=== PATIENT | female | born 1950 | race Two or more races ===

== ENCOUNTER 2016-07-13 12:51 | Inpatient (IN) | payer MEDICARE, OTHER ==
[~2016-07-13] VITALS: Ht 152.4 cm; Wt 112.6 kg
[2016-07-13 13:51] LABS: Basophils # (auto) 0.1 uL; Basophils % (auto) 0.7 % (0.0-2.0); Eosinophils # (auto) 0.2 uL; Eosinophils % (auto) 1.6 % (0.0-7.0); Hematocrit 43.8 % (36.0-46.0); Hemoglobin 14.3 g/dL (12.2-16.2); Lymphocytes # (auto) 3.2 uL; Lymphocytes % (auto) 31.2 % (10.0-50.0); Mean Corpuscular Hgb Conc. 32.6 g/dL (32.0-36.0); Mean Corpuscular Volume 85.8 fL (80.0-100.0); Mean Platelet Volume 8.9 fL (7.4-10.4); Monocytes # (auto) 1.1 uL; Neutrophils # (auto) 5.8 uL; Neutrophils % (auto) 55.5 % (37.0-80.0); Platelet Count (auto) 346 10^3/uL (140-450); Red Cell Distribution Width 14.3 % (11.6-16.0); White Blood Cell 10.4 10^3/uL (4.4-10.8)
[2016-07-13 14:25] LABS: Albumin 3.3 g/dL (3.4-5.0); BUN/Creatinine Ratio 15.5; Calcium 8.9 mg/dL (8.5-10.1); Magnesium 2.3 mg/dL (1.6-2.6); Potassium 3.8 mmol/L (3.5-5.1)
[2016-07-13 14:26] LABS: INR 1.06 (0.9-1.15); Partial Thromboplastin Time 26.8 sec (22.64-33.71); Prothrombin Time 10.9 sec (9.37-12.3)
[2016-07-13 14:30] LABS: Bilirubin, Total 0.5 mg/dL (0.2-1.0); Total Protein 7.6 g/dL (6.4-8.2)
[2016-07-13 14:34] LABS: B-Type Natriuretic Peptide 338.21 pg/mL (0-100)
[2016-07-13 14:35] LABS: Temperature: 22.7 C (20.0-25.0)
[2016-07-13] MEDS ORDERED: cefTRIAXone 1GM/50ML D5W 50 ML IV ONE (15:00)
[2016-07-13] MEDS ORDERED: LORazepam 0.5 MG TAB PO PRN (15:15)
[2016-07-13] MEDS ORDERED: DEXTROSE (50%) 50ML SYRG IV PRN (15:15)
[2016-07-13] MEDS ORDERED: ALBUTEROL SULF 2.5 MG/0.5ML(0.5%) NEB SOLN NEB PRN (15:15)
[2016-07-13] MEDS ORDERED: ACETAMINOPHEN 500 MG TAB PO PRN (15:15)
[2016-07-13] MEDS ORDERED: TEMAZEPAM 15 MG CAP PO PRN (15:15)
[2016-07-13] MEDS ORDERED: MORPHINE SULF INJ 2 MG/ML SYRINGE 1ML IV PRN ×2 (15:15)
[2016-07-13] MEDS ORDERED: PROMETHAZINE HCL 25 MG/ML 1ML IV PRN (15:15)
[2016-07-13] MEDS ORDERED: LACTULOSE 20Gm/30ML SOLN PO PRN (15:15)
[2016-07-13] MEDS ORDERED: OSELTAMIVIR 75 MG CAP PO ONE (15:15)
[2016-07-13] MEDS ORDERED: NITROGLYCERIN 0.4 MG SL TAB SL PRN (15:15)
[2016-07-13] MEDS ORDERED: VENL75TA43 PO (15:45)
[2016-07-13] MEDS ORDERED: LOSA25TA9 PO (15:45)
[2016-07-13] MEDS ORDERED: CHOL20009 PO (15:45)
[2016-07-13] MEDS ORDERED: FUROSEMIDE 40 MG/4 ML VIAL IV ONE (15:45)
[2016-07-13] MEDS ORDERED: LEVOFLOXACIN 500MG 100 ML IV ONE (15:45)
[2016-07-13] MEDS ORDERED: TRAM50TA2 PO (15:45)
[2016-07-13] MEDS ORDERED: CLOP75TA41 PO (15:45)
[2016-07-13] MEDS ORDERED: INSDRIP IV (15:45)
[2016-07-13] MEDS ORDERED: ENALAPRIL MALEATE 2.5 MG TAB PO ONE (15:45)
[2016-07-13] MEDS ORDERED: HCTZ25T PO (15:45)
[2016-07-13] MEDS ORDERED: GLIP1TAB38 PO (15:45)
[2016-07-13] MEDS ORDERED: PANTOPRAZOLE 40 MG TAB PO ONE (15:45)
[2016-07-13] MEDS ORDERED: FAM20T PO (15:45)
[2016-07-13] MEDS ORDERED: DILT180C88 PO (15:45)
[2016-07-13] MEDS ORDERED: CARVEDILOL 3.125 MG TAB PO ONE (15:45)
[2016-07-13] MEDS ORDERED: ASPirin 81 mg TAB PO ONE (15:45)
[2016-07-13] MEDS ORDERED: LEVEMIR SC (15:45)
[2016-07-13] MEDS ORDERED: METF-312 PO (15:45)
[2016-07-13] MEDS ORDERED: CARI350T21 PO (15:45)
[2016-07-13] MEDS ORDERED: POTASSIUM CHL 20 Meq TABLET PO ONE (15:45)
[2016-07-13] MEDS ORDERED: NITR0.4S29 SL (15:45)
[2016-07-13] MEDS ORDERED: ENOXAPARIN SOD 40 MG/0.4 ML SYRINGE SC ONE (15:50)
[2016-07-13] MEDS ORDERED: IOHEXOL 350 MG/ML 100ML IJ ONE (17:03)
[2016-07-13] MEDS: ACCU-CHEK COMFORT CURVE STRIP VI SCH ×2 (18:00→22:10)
[2016-07-13] MEDS: InsuLIN REG 1unit/0.01ml Soln (100units/ml) SC SCH ×2 (18:00→22:10)
[2016-07-13] MEDS: ALBUTEROL SULF 2.5 MG/0.5ML(0.5%) NEB SOLN NEB SCH (19:06)
[2016-07-13] MEDS: IPRATROPIUM BROM 0.5 MG/2.5ML INH SOL NEB SCH (19:07)
[2016-07-13 20:00] VITALS: BP 146/77
[2016-07-13] MEDS: HYDROcodone-ACET 5/325MG TAB PO PRN (20:20)
[2016-07-13] MEDS: SODIUM CHLOR 0.9% PF (SALINE LOCK) 10ML VIAL IV SCH (21:57)
[2016-07-13] MEDS: ATORVASTATIN 20 MG TAB PO SCH (21:57)
[2016-07-13] MEDS: CARVEDILOL 3.125 MG TAB PO SCH (21:58)
[2016-07-13] MEDS ORDERED: OSELTAMIVIR 75 MG CAP PO SCH (22:00)
[2016-07-13 22:07] VITALS: BP 146/87
[2016-07-14] VITALS (7 sets, daily range): BP systolic 93–125; BP diastolic 59–74
[2016-07-14] MEDS: IPRATROPIUM BROM 0.5 MG/2.5ML INH SOL NEB SCH ×4 (00:15→18:30)
[2016-07-14] MEDS: ALBUTEROL SULF 2.5 MG/0.5ML(0.5%) NEB SOLN NEB SCH ×4 (00:15→18:30)
[2016-07-14] MEDS: SODIUM CHLOR 0.9% PF (SALINE LOCK) 10ML VIAL IV SCH ×3 (06:15→21:43)
[2016-07-14] MEDS: ACCU-CHEK COMFORT CURVE STRIP VI SCH ×3 (06:15→17:23)
[2016-07-14 06:19] LABS: Basophils # (auto) 0.1 uL; Basophils % (auto) 0.7 % (0.0-2.0); Eosinophils # (auto) 0.3 uL; Eosinophils % (auto) 3.2 % (0.0-7.0); Hematocrit 41.6 % (36.0-46.0); Hemoglobin 13.7 g/dL (12.2-16.2); Lymphocytes # (auto) 2.9 uL; Lymphocytes % (auto) 31.1 % (10.0-50.0); Mean Corpuscular Hemoglobin 28.3 pg (28.0-32.0); Mean Corpuscular Volume 85.6 fL (80.0-100.0); Mean Platelet Volume 9.2 fL (7.4-10.4); Monocytes # (auto) 0.9 uL; Monocytes % (auto) 10.1 % (0.0-12.0); Neutrophils # (auto) 5.1 uL; Neutrophils % (auto) 54.9 % (37.0-80.0); Platelet Count (auto) 324 10^3/uL (140-450); Red Cell Distribution Width 14.7 % (11.6-16.0); White Blood Cell 9.3 10^3/uL (4.4-10.8)
[2016-07-14] MEDS: InsuLIN REG 1unit/0.01ml Soln (100units/ml) SC SCH ×3 (06:30→17:53)
[2016-07-14] MEDS: HYDROcodone-ACET 5/325MG TAB PO PRN ×2 (06:48→17:47)
[2016-07-14 06:51] LABS: Albumin 3.1 g/dL (3.4-5.0); BUN/Creatinine Ratio 19.1; Bilirubin, Total 0.4 mg/dL (0.2-1.0); Calcium 9.1 mg/dL (8.5-10.1); Potassium 3.7 mmol/L (3.5-5.1); Total Protein 7.3 g/dL (6.4-8.2)
[2016-07-14] MEDS ORDERED: NITROGLYCERIN 0.2MG/HR TOPICAL PATCH TD SCH (10:00)
[2016-07-14] MEDS ORDERED: IOHEXOL 350 MG/ML 100ML IJ ONE (10:03)
[2016-07-14] MEDS: PANTOPRAZOLE 40 MG TAB PO SCH (10:41)
[2016-07-14] MEDS: POTASSIUM CHL 20 Meq TABLET PO SCH (10:41)
[2016-07-14] MEDS: ENOXAPARIN SOD 40 MG/0.4 ML SYRINGE SC SCH (10:41)
[2016-07-14] MEDS: ASPirin 81 mg TAB PO SCH (10:42)
[2016-07-14] MEDS: FUROSEMIDE 40 MG/4 ML VIAL IV SCH (10:42)
[2016-07-14] MEDS: ENALAPRIL MALEATE 2.5 MG TAB PO SCH (10:42)
[2016-07-14] MEDS: CARVEDILOL 3.125 MG TAB PO SCH ×2 (10:43→21:45)
[2016-07-14] MEDS: LEVOFLOXACIN 500MG 100 ML IV SCH (10:53)
[2016-07-14] MEDS: ATORVASTATIN 20 MG TAB PO SCH (21:45)
[2016-07-15] MEDS: IPRATROPIUM BROM 0.5 MG/2.5ML INH SOL NEB SCH ×4 (00:18→18:45)
[2016-07-15] MEDS: ACCU-CHEK COMFORT CURVE STRIP VI SCH ×4 (00:18→17:49)
[2016-07-15] MEDS: ALBUTEROL SULF 2.5 MG/0.5ML(0.5%) NEB SOLN NEB SCH ×4 (00:18→18:45)
[2016-07-15 05:36] VITALS: BP 135/76
[2016-07-15] MEDS: InsuLIN REG 1unit/0.01ml Soln (100units/ml) SC SCH ×4 (06:18→17:49)
[2016-07-15] MEDS: SODIUM CHLOR 0.9% PF (SALINE LOCK) 10ML VIAL IV SCH ×3 (06:18→21:40)
[2016-07-15 08:00] VITALS: BP 99/59
[2016-07-15 08:57] VITALS: BP 99/59
[2016-07-15] MEDS: LEVOFLOXACIN 500MG 100 ML IV SCH (09:53)
[2016-07-15] MEDS: POTASSIUM CHL 20 Meq TABLET PO SCH (09:54)
[2016-07-15] MEDS: ENOXAPARIN SOD 40 MG/0.4 ML SYRINGE SC SCH (09:54)
[2016-07-15] MEDS: FUROSEMIDE 40 MG/4 ML VIAL IV SCH (09:54)
[2016-07-15] MEDS: PANTOPRAZOLE 40 MG TAB PO SCH (09:54)
[2016-07-15] MEDS: ASPirin 81 mg TAB PO SCH (09:55)
[2016-07-15] MEDS: ENALAPRIL MALEATE 2.5 MG TAB PO SCH (09:56)
[2016-07-15] MEDS: CARVEDILOL 3.125 MG TAB PO SCH ×2 (09:56→21:43)
[2016-07-15] MEDS: HYDROcodone-ACET 5/325MG TAB PO PRN ×2 (12:09→19:51)
[2016-07-15 12:31] VITALS: BP 136/73
[2016-07-15] MEDS ORDERED: BUMETANIDE INJECTION 25 MG in GIVE UN-DILUTED 0 ML IV SCH (15:30)
[2016-07-15] MEDS ORDERED: POTASSIUM CHL 20 Meq TABLET PO ONE (15:30)
[2016-07-15 16:44] VITALS: BP 115/68
[2016-07-15 21:43] VITALS: BP 112/52
[2016-07-15] MEDS: ATORVASTATIN 20 MG TAB PO SCH (21:43)
[2016-07-16] MEDS: ACCU-CHEK COMFORT CURVE STRIP VI SCH ×5 (00:03→23:15)
[2016-07-16] MEDS: InsuLIN REG 1unit/0.01ml Soln (100units/ml) SC SCH ×5 (00:05→23:15)
[2016-07-16] MEDS: ALBUTEROL SULF 2.5 MG/0.5ML(0.5%) NEB SOLN NEB SCH ×4 (00:14→19:10)
[2016-07-16] MEDS: IPRATROPIUM BROM 0.5 MG/2.5ML INH SOL NEB SCH ×4 (00:14→19:10)
[2016-07-16 05:26] VITALS: BP_SYST 9
[2016-07-16] MEDS: SODIUM CHLOR 0.9% PF (SALINE LOCK) 10ML VIAL IV SCH ×3 (05:50→21:04)
[2016-07-16 06:22] LABS: Basophils # (auto) 0.1 uL; Basophils % (auto) 0.9 % (0.0-2.0); Eosinophils # (auto) 0.4 uL; Eosinophils % (auto) 3.9 % (0.0-7.0); Hematocrit 44.7 % (36.0-46.0); Hemoglobin 14.6 g/dL (12.2-16.2); Lymphocytes # (auto) 2.7 uL; Lymphocytes % (auto) 29.8 % (10.0-50.0); Mean Corpuscular Hemoglobin 27.9 pg (28.0-32.0); Mean Corpuscular Hgb Conc. 32.7 g/dL (32.0-36.0); Mean Corpuscular Volume 85.5 fL (80.0-100.0); Mean Platelet Volume 8.9 fL (7.4-10.4); Monocytes # (auto) 0.9 uL; Neutrophils % (auto) 55.4 % (37.0-80.0); Platelet Count (auto) 335 10^3/uL (140-450); Red Cell Distribution Width 14.4 % (11.6-16.0); White Blood Cell 8.9 10^3/uL (4.4-10.8)
[2016-07-16 06:55] LABS: BUN/Creatinine Ratio 22.2; Calcium 9.2 mg/dL (8.5-10.1); Phosphorus 4.3 mg/dL (2.5-4.90); Potassium 3.4 mmol/L (3.5-5.1)
[2016-07-16 08:00] VITALS: BP 121/73
[2016-07-16 09:00] VITALS: BP 121/73
[2016-07-16] MEDS: ENOXAPARIN SOD 40 MG/0.4 ML SYRINGE SC SCH (09:31)
[2016-07-16] MEDS: PANTOPRAZOLE 40 MG TAB PO SCH (09:31)
[2016-07-16] MEDS: LEVOFLOXACIN 500MG 100 ML IV SCH (09:31)
[2016-07-16] MEDS: POTASSIUM CHL 20 Meq TABLET PO SCH (09:31)
[2016-07-16] MEDS: CARVEDILOL 3.125 MG TAB PO SCH ×2 (09:32→21:04)
[2016-07-16] MEDS: ENALAPRIL MALEATE 2.5 MG TAB PO SCH (09:32)
[2016-07-16] MEDS: ASPirin 81 mg TAB PO SCH (09:32)
[2016-07-16] MEDS: HYDROcodone-ACET 5/325MG TAB PO PRN (10:15)
[2016-07-16] MEDS ORDERED: SODIUM CHLORIDE 0.9% 250 ML IV ONE (12:45)
[2016-07-16 12:48] VITALS: BP 90/60
[2016-07-16] MEDS ORDERED: POTASSIUM CHL 20 Meq TABLET PO ONE (14:15)
[2016-07-16 17:00] VITALS: BP 98/63
[2016-07-16] MEDS: ATORVASTATIN 20 MG TAB PO SCH (20:58)
[2016-07-16 22:00] VITALS: BP 87/53
[2016-07-17] VITALS (8 sets, daily range): BP systolic 87–113; BP diastolic 47–72
[2016-07-17] MEDS: ALBUTEROL SULF 2.5 MG/0.5ML(0.5%) NEB SOLN NEB SCH ×4 (00:19→20:12)
[2016-07-17] MEDS: IPRATROPIUM BROM 0.5 MG/2.5ML INH SOL NEB SCH ×4 (00:20→20:12)
[2016-07-17] MEDS: ACCU-CHEK COMFORT CURVE STRIP VI SCH ×4 (05:16→23:49)
[2016-07-17] MEDS: SODIUM CHLOR 0.9% PF (SALINE LOCK) 10ML VIAL IV SCH ×3 (05:16→22:19)
[2016-07-17] MEDS: InsuLIN REG 1unit/0.01ml Soln (100units/ml) SC SCH ×3 (05:16→18:24)
[2016-07-17 05:57] LABS: Basophils # (auto) 0 uL; Basophils % (auto) 0.4 % (0.0-2.0); Eosinophils # (auto) 0.3 uL; Eosinophils % (auto) 3.3 % (0.0-7.0); Hematocrit 43.4 % (36.0-46.0); Hemoglobin 14.7 g/dL (12.2-16.2); Lymphocytes # (auto) 3.1 uL; Lymphocytes % (auto) 33.3 % (10.0-50.0); Mean Corpuscular Hemoglobin 28.5 pg (28.0-32.0); Mean Corpuscular Hgb Conc. 33.9 g/dL (32.0-36.0); Mean Corpuscular Volume 84.1 fL (80.0-100.0); Mean Platelet Volume 8.4 fL (7.4-10.4); Monocytes # (auto) 0.9 uL; Monocytes % (auto) 9.6 % (0.0-12.0); Neutrophils % (auto) 53.4 % (37.0-80.0); Platelet Count (auto) 347 10^3/uL (140-450); Red Cell Distribution Width 14.3 % (11.6-16.0); White Blood Cell 9.4 10^3/uL (4.4-10.8)
[2016-07-17 06:25] LABS: BUN/Creatinine Ratio 23.9; Calcium 9.5 mg/dL (8.5-10.1); Magnesium 2.1 mg/dL (1.6-2.6); Phosphorus 4.1 mg/dL (2.5-4.90)
[2016-07-17] MEDS: HYDROcodone-ACET 5/325MG TAB PO PRN ×2 (08:59→20:48)
[2016-07-17] MEDS: POTASSIUM CHL 20 Meq TABLET PO SCH (09:46)
[2016-07-17] MEDS: ENOXAPARIN SOD 40 MG/0.4 ML SYRINGE SC SCH (09:46)
[2016-07-17] MEDS: ENALAPRIL MALEATE 2.5 MG TAB PO SCH (09:47)
[2016-07-17] MEDS: PANTOPRAZOLE 40 MG TAB PO SCH (09:47)
[2016-07-17] MEDS: CARVEDILOL 3.125 MG TAB PO SCH ×2 (09:48→22:19)
[2016-07-17] MEDS: LEVOFLOXACIN 500 MG TAB PO SCH (09:48)
[2016-07-17] MEDS: ASPirin 81 mg TAB PO SCH (10:00)
[2016-07-17] MEDS: ATORVASTATIN 20 MG TAB PO SCH (22:09)
[2016-07-18] MEDS: InsuLIN REG 1unit/0.01ml Soln (100units/ml) SC SCH ×2 (00:12→05:40)
[2016-07-18] MEDS: ALBUTEROL SULF 2.5 MG/0.5ML(0.5%) NEB SOLN NEB SCH ×3 (01:15→11:45)
[2016-07-18] MEDS: IPRATROPIUM BROM 0.5 MG/2.5ML INH SOL NEB SCH ×3 (01:15→11:45)
[2016-07-18 05:00] VITALS: BP 112/71
[2016-07-18] MEDS: ACCU-CHEK COMFORT CURVE STRIP VI SCH ×2 (05:40→13:34)
[2016-07-18] MEDS: SODIUM CHLOR 0.9% PF (SALINE LOCK) 10ML VIAL IV SCH (05:41)
[2016-07-18 09:00] VITALS: BP 103/64
[2016-07-18] MEDS: POTASSIUM CHL 20 Meq TABLET PO SCH (09:34)
[2016-07-18] MEDS: ENALAPRIL MALEATE 2.5 MG TAB PO SCH (09:34)
[2016-07-18] MEDS: PANTOPRAZOLE 40 MG TAB PO SCH (09:34)
[2016-07-18] MEDS: LEVOFLOXACIN 500 MG TAB PO SCH (09:34)
[2016-07-18] MEDS: ASPirin 81 mg TAB PO SCH (09:35)
[2016-07-18] MEDS: ENOXAPARIN SOD 40 MG/0.4 ML SYRINGE SC SCH (09:35)
[2016-07-18] MEDS: CARVEDILOL 3.125 MG TAB PO SCH (09:35)
[2016-07-18] MEDS: HYDROcodone-ACET 5/325MG TAB PO PRN (09:38)
== END 2016-07-18 14:20 | disposition short-term general hospital (02) | DRG 291 ==
LOC: ER 13:00 → TELE 13:01 → TELE-WESTW 17:58
PROVIDERS: ADMIT Internal Medicine; ATTEND Nurse Practitioner Acute Care
PROC: 5A09457 Assistance with Respiratory Ventilation, 24-96 Consecutive Hours, Continuous Positive Airway Pressure (ICD-10-PCS; principal; 2016-07-13)
DX: I50.33 Acute on chronic diastolic (congestive) heart failure (principal); J18.9 Pneumonia, unspecified organism; E66.2 Morbid (severe) obesity with alveolar hypoventilation; Z68.42 Body mass index [BMI] 45.0-49.9, adult; I69.354 Hemiplegia and hemiparesis following cerebral infarction affecting left non-dominant side; I11.0 Hypertensive heart disease with heart failure; E66.01 Morbid (severe) obesity due to excess calories; G47.30 Sleep apnea, unspecified; E11.65 Type 2 diabetes mellitus with hyperglycemia; I70.0 Atherosclerosis of aorta; F41.9 Anxiety disorder, unspecified; Z90.49 Acquired absence of other specified parts of digestive tract; Z82.49 Family history of ischemic heart disease and other diseases of the circulatory system; Z90.710 Acquired absence of both cervix and uterus
CPT/HCPCS: 36415; 71010; 71275; 80048; 80053; 80061; 82550; 82962; 83036; 83735; 83880; 84100; 84443; 84484; 85025; 85379; 85610; 85652; 85730; 86141; 87040; 87400; 93005; 93306; 94640; 94660; 96365; 96367; 96372; 96375; G0434; J0696; J1815; J1956

== ENCOUNTER 2017-10-16 15:02 | Emergency (ER) | payer MEDICARE, OTHER ==
[~2017-10-16] VITALS: Ht 165.1 cm; Wt 108.9 kg
[~2017-10-16 15:02] MED LIST: CARI-316 PO; CHOL20009 PO; CLOP75TA41 PO; DILT180C88 PO; FAM20T PO; GLIP1TAB38 PO; HCTZ25T PO; INSDRIP IV; LEVEMIR SC; LOSA25TA9 PO; METF-370 PO; NITR0.4S29 SL; TRAM50TA2 PO; VENL75TA43 PO
[2017-10-16] MEDS ORDERED: SODIUM CHLORIDE 0.9% 1,000 ML IV ONE ×2 (15:24)
[2017-10-16] MEDS ORDERED: PROMETHAZINE HCL 25 MG/ML 1ML IV ONE ×2 (16:00)
[2017-10-16 16:22] LABS: Basophils # (auto) 0.1 uL; Basophils % (auto) 1.2 % (0.0-2.0); Eosinophils # (auto) 0.1 uL; Eosinophils % (auto) 1.1 % (0.0-7.0); Hematocrit 46.1 % (36.0-46.0); Hemoglobin 15.2 g/dL (12.2-16.2); Lymphocytes % (auto) 30.5 % (10.0-50.0); Mean Corpuscular Hemoglobin 29.1 pg (28.0-32.0); Mean Corpuscular Hgb Conc. 32.9 g/dL (32.0-36.0); Mean Corpuscular Volume 88.2 fL (80.0-100.0); Monocytes # (auto) 0.9 uL; Monocytes % (auto) 9.3 % (0.0-12.0); Neutrophils # (auto) 5.7 uL; Neutrophils % (auto) 57.9 % (37.0-80.0); Nucleated Red Blood Cells % 0.1 %; Platelet Count (auto) 307 10^3/uL (140-450); Red Blood Cells 5.23 10^6/uL (4.0-5.20); Red Cell Distribution Width 15.1 % (11.8-14.3); White Blood Cell 9.8 10^3/uL (4.4-10.8)
[2017-10-16] MEDS ORDERED: PIPERACILLIN-TAZOB 3.375GM 100 ML IV ONE (17:00)
[2017-10-16] MEDS ORDERED: metroNIDAZOLE 500MG/100ML 100 ML IV ONE (17:00)
[2017-10-16 17:08] LABS: Alanine Aminotransferase 54 U/L (13-56); Albumin 3.6 g/dL (3.4-5.0); Alkaline Phosphatase 192 U/L (45-117); Anion Gap 12 (5-15); Aspartate Aminotransferase 61 U/L (15-37); BUN/Creatinine Ratio 9.1; Bilirubin, Total 0.2 mg/dL (0.2-1.0); Blood Urea Nitrogen 9 mg/dL (7-18); Calcium 9.4 mg/dL (8.5-10.1); Carbon Dioxide 24 mmol/L (21-32); Chloride 104 mmol/L (98-107); GFR African American 72 mL/min; GFR Non-African American 59 mL/min; Glucose 303 mg/dL (74-106); Potassium 3.8 mmol/L (3.5-5.1); Sodium 140 mmol/L (136-145); Total Protein 8.3 g/dL (6.4-8.2)
[2017-10-16 17:26] LABS: Prothrombin Time 10.7 sec (9.27-12.13)
[2017-10-16 18:06] LABS: Lactic Acid w/Reflex 3.3 mmol/L (0.4-2.0)
[2017-10-16 18:35] LABS: Urine Bacteria FEW /hpf (None Seen); Urine Blood Negative /uL (Negative); Urine Specific Gravity 1.008 (1.001-1.035); Urine WBC 4 /hpf (0 - 5)
[2017-10-16] MEDS ORDERED: BENZOCAINE (DENTAL) 20 % SPRAY 60ML MT ONE (20:45)
[2017-10-16 20:50] VITALS: BP 97/61
== END 2017-10-16 21:01 | disposition short-term general hospital (02) ==
LOC: ER 15:02
DX: K55.9 Vascular disorder of intestine, unspecified (principal); E87.2 Acidosis; E11.65 Type 2 diabetes mellitus with hyperglycemia; I10 Essential (primary) hypertension; Z79.4 Long term (current) use of insulin; Z79.899 Other long term (current) drug therapy; Z86.73 Personal history of transient ischemic attack (TIA), and cerebral infarction without residual deficits; Z90.49 Acquired absence of other specified parts of digestive tract; Z90.710 Acquired absence of both cervix and uterus; R20.0 Anesthesia of skin
CPT/HCPCS: 36415; 36600; 70450; 71045; 74176; 80053; 81001; 82010; 82805; 83036; 83605; 83880; 84484; 85025; 85610; 85730; 87040; 93005; 96361; 96365; 96366; 96368; 96375; 99291; J2543; J2550; J3490